=== PATIENT | female | born 1995 | race Caucasian/White ===

== ENCOUNTER 2017-10-11 22:24 | Emergency (ER) | payer SELFPAY ==
[~2017-10-11] VITALS: Ht 157.5 cm; Wt 77.3 kg
[2017-10-11 22:50] VITALS: BP 114/72; TEMP 98.3
[2017-10-11] MEDS ORDERED: BACTRIM DS 8001 TAB PO (23:12)
[2017-10-11] MEDS ORDERED: PREDNISONE20 MG PO (23:12)
[2017-10-11 23:25] VITALS: PULSE 89
== END 2017-10-11 23:25 | disposition home or self-care (01) ==
LOC: COL.ER 22:24
DX: S60.862A Insect bite (nonvenomous) of left wrist, initial encounter (principal); L08.9 Local infection of the skin and subcutaneous tissue, unspecified; I10 Essential (primary) hypertension; F41.9 Anxiety disorder, unspecified; J45.909 Unspecified asthma, uncomplicated; Z79.52 Long term (current) use of systemic steroids; W57.XXXA Bitten or stung by nonvenomous insect and other nonvenomous arthropods, initial encounter
CPT/HCPCS: J7512